=== PATIENT | male | born 1940 | race Caucasian/White ===

== ENCOUNTER → 2018-01-08 | Outpatient (CLI) | payer OTHER, BC ==
[~2018-01-08] MED LIST: ADVAIR 250-501 EACH INH; ASPIRIN325 PO; ATROVENT15 ML NASAL; AVODART0.5 MG PO; AZOR 10-40 MG1 EACH PO; BYSTOLIC10 MG PO; CENTRUM SILVER1 EAC4 PO; FISH OIL 1,0001 EAC5 PO; FISH OIL 1,2001 EAC4 PO; GLUCOPHAGE1000 MG PO; HYDROCODON-ACE1 EAC8 PO; LANSOPRAZOLE30 MG PO; LIPITOR80 MG PO; LORTAB 7.5/5001 TA3 PO; MUCINEX1200 MG PO; NORFLEX100 MG PO; PERCOCET 5-3251 EACH PO; PREDNISONE 20 M20 M1 PO; PROAIR HFA8.5 GM INH; SINGULAIR 10 MG10 M1 PO; TAMSULOSIN HCL0.4 MG PO; TRIAMTERENE-HC1 EAC1 PO; ZETIA10 MG PO
== END ==
LOC: ULTRA 14:28
DX: R10.11 Right upper quadrant pain (principal); I10 Essential (primary) hypertension; E11.9 Type 2 diabetes mellitus without complications; E78.00 Pure hypercholesterolemia, unspecified; G47.33 Obstructive sleep apnea (adult) (pediatric); J45.909 Unspecified asthma, uncomplicated; K21.9 Gastro-esophageal reflux disease without esophagitis